=== PATIENT | male | born 1970 | race Caucasian/White ===

== ENCOUNTER 2018-01-19 14:49 | Inpatient (IN) | payer OTHER ==
[~2018-01-19] VITALS: Ht 170.2 cm; Wt 81.6 kg
--- NOTE | 2018-01-19 14:52 | NUR ---
[id number] FOR CHEST PAIN X 2 HRS. ASA 162 GIVEN. ETOH INTOXICATED. PT STS HE HAD VODKA TODAY. BS IN FIELD 232. PT IS VERY EMOTIONAL WHEN ASKED OR ASSESSED. GOWNED AND PLACED ON CONT CARDIAC AND POX MONITORING. WILL CONT TO MONITOR
[2018-01-19] MEDS ORDERED: ONDANSETRON HCL/PF 4 MG/2 ML VIAL ONE (15:08)
[2018-01-19] MEDS ORDERED: ASPIRIN 81 MG TAB.CHEW ONE (15:08)
[2018-01-19 15:16] LABS: BASOPHILS # (AUTO) 0.1 /CMM (0.0-0.2); EOSINOPHILS % (AUTO) 0.3 % (0.0-6.0); HEMATOCRIT 49 % (39-51); HEMOGLOBIN 17.5 g/dL (13.5-17.5); LYMPHOCYTES # (AUTO) 1.2 /CMM (0.8-4.8); LYMPHOCYTES % (AUTO) 16.7 % (20.0-44.0); MEAN CORPUSCULAR HEMOGLOBIN 33 PG (26.0-33.0); MEAN CORPUSCULAR HGB CONC 35 g/dl (31.0-36.0); MEAN CORPUSCULAR VOLUME 93 fL (80-96); MONOCYTES # (AUTO) 0.4 /CMM (0.1-1.30); MONOCYTES % (AUTO) 5.1 % (2.0-12.0); NEUTROPHILS # (AUTO) 5.4 /CMM (1.8-8.9); NEUTROPHILS % (AUTO) 76.9 % (43.0-81.0); PLATELET COUNT (AUTO) 185 /CMM (150-450); RDW COEFFICIENT OF VARIATION 14.6 (11.5-15.0); RED BLOOD CELL COUNT(AUTO) 5.29 MIL/uL (4.5-6.0); WHITE BLOOD COUNT (AUTO) 7.1 K/uL (4.3-11.0)
--- NOTE | 2018-01-19 15:16 | NUR ---
CALLED PHARMACY FOR THIAMINE IVPB.
[2018-01-19 15:26] LABS: CALCIUM, SERUM 8.9 mg/dL (8.5-10.1); CARBON DIOXIDE 24 mmol/L (21-32); CHLORIDE 97 mmol/L (98-107); CREATININE 1.2 mg/dL (0.6-1.3); GLUCOSE 274 mg/dL (74-106); POTASSIUM 3.7 mmol/L (3.5-5.1); SODIUM SERUM 139 mmol/L (136-145); UREA NITROGEN, BLOOD 14 mg/dL (7-18)
[2018-01-19 15:28] LABS: INR 0.85 (0.85-1.15)
[2018-01-19] MEDS ORDERED: ASPIRIN 81 MG TAB.CHEW PO ONE (15:30)
[2018-01-19] MEDS ORDERED: ONDANSETRON HCL/PF 4 MG/2 ML VIAL IVP ONE (15:30)
[2018-01-19] MEDS ORDERED: Thiamine 100 MG in IV D5W 50 ML IV SCH (15:30)
[2018-01-19] MEDS ORDERED: IV NS 0.9% 500 ML BAG IV ONE (15:30)
[2018-01-19 15:34] LABS: TROPONIN I < 0.017 ng/mL (0.00-0.056)
[2018-01-19 15:38] LABS: ALANINE AMINOTRANSFERASE 68 U/L (12-78); ALBUMIN 3.6 g/dL (3.4-5.0); ALKALINE PHOSPHATASE 48 U/L (46-116); ASPARTATE AMINOTRANSFERASE 41 U/L (15-37); B-TYPE NATRIURETIC PEPTIDE < 5 PG/ML (0-125); BILIRUBIN,DIRECT 0.1 mg/dL (0.0-0.2); BILIRUBIN,TOTAL 0.4 mg/dL (0.2-1.0); TOTAL PROTEIN, SERUM 7.2 g/dL (6.4-8.2)
[2018-01-19] MEDS ORDERED: ATOR10TA PO (16:42)
[2018-01-19] MEDS ORDERED: BUSP10TA35 PO (16:42)
[2018-01-19] MEDS ORDERED: GLIP10TA11 PO (16:42)
[2018-01-19] MEDS ORDERED: CANA100T PO (16:42)
[2018-01-19] MEDS ORDERED: TEST200V3 IM (16:42)
[2018-01-19] MEDS ORDERED: ALOG1TAB PO (16:42)
[2018-01-19] MEDS ORDERED: TRAZ-147 PO (16:42)
[2018-01-19] MEDS ORDERED: LORAZEPAM INJ 2 MG/ML VIAL ONE (16:57)
[2018-01-19] MEDS ORDERED: LORAZEPAM INJ 2 MG/ML VIAL IV ONE (17:00)
--- NOTE | 2018-01-19 17:38 | NUR ---
PATIENT ASSIGNED TO TELE 314-2, DX CHEST PAIN, ADMITTING DR REYNA
[2018-01-19 17:43] VITALS: BP 141/72
--- NOTE | 2018-01-19 17:43 | NUR ---
REPORT GIVEN TO NURSE LEE FOR CONT OF CARE
--- NOTE | 2018-01-19 19:04 | NUR ---
REPORT GIVEN TO ISAI RN
--- NOTE | 2018-01-19 19:16 | NUR ---
RECEIVED REPORT FROM JHOANA ALANIZ. UPON ENTERING THE ROOM PT WAS NO LONGER IN ROOM. IV CATHETER WAS PULLED OUT AND FOUND BEDSIDE. CATHETER TIP WAS INTACT. Patient eloped from facility. ER notified.
== END 2018-01-20 00:47 | disposition left against medical advice (07) | DRG 770 ==
LOC: ER 14:50 → TELE 18:28
PROVIDERS: ADMIT Internal Medicine; ATTEND Internal Medicine
DX: F10.129 Alcohol abuse with intoxication, unspecified (principal); E11.9 Type 2 diabetes mellitus without complications; Z79.84 Long term (current) use of oral hypoglycemic drugs; F41.9 Anxiety disorder, unspecified; R07.9 Chest pain, unspecified; Y90.9 Presence of alcohol in blood, level not specified
CPT/HCPCS: 36415; 71045-TC; 80048-TC; 80076-TC; 83735-TC; 83880; 84484-TC; 85025-TC; 85730-TC; 87081-TC; J2060; J2405; J3411; J7040; J7060